=== PATIENT | female | born 1970 | race Caucasian/White ===

== ENCOUNTER → 2016-04-19 | Outpatient (CLI) | payer BC ==
[2016-04-19 11:42] LABS: CHLORIDE,CL 104 mmol/L (98-110); SODIUM,NA 140 mmol/L (136-146)
--- NOTE | 2016-04-19 16:15 | CR ---
EXAM DATE: 04/19/16 PATIENT'S AGE: 45 Patient: MARI LEGGETT Facility: [place], [place] Site . Site : 1970 Study: XRay Extremity Left wrist [id number]/8/2017 11:18:38 AM Ordering Physician: Felipa Colin Final Report: INDICATION: pain TECHNIQUE: Left wrist 2 views. COMPARISON: None. FINDINGS: Bones: Alignment is normal. No fractures or bone lesions. Joint spaces: Unremarkable. Soft tissues: Unremarkable. IMPRESSION: Unremarkable left wrist. Dictated by: Kirk Mcintosh MD @ 04/19/2016 12:01:57 (Electronic Signature) MReport Signed by Proxy and Original Signed Document filed in the Medical Record. MTDD
== END ==
LOC: MW.CHIM 10:52
PROVIDERS: ATTEND Internal Medicine
DX: M19.032 Primary osteoarthritis, left wrist (principal)
CPT/HCPCS: 36415; 73100-26-LT; 73100-LT; 80048; 84550; 85025; 85652; 86140

== ENCOUNTER 2016-06-02 16:05 | Emergency (ER) | payer BC ==
[2016-06-02] MEDS ORDERED: Sodium Chloride 0.9% 1,000 ML IV ONE (16:32)
[2016-06-02] MEDS ORDERED: Ondansetron 4 MG/2 ML SDV IVPUSH ONE (16:32)
[2016-06-02] MEDS ORDERED: Metoclopramide 10 MG/2 ML SDV IVPUSH ONE (16:32)
[2016-06-02] MEDS ORDERED: Alum Hydrox/Mag Hydrox/Simeth 15 ML, Metoclopramide 5 MG, Lidocaine 2% 5 ML PO ONE ×3 (16:32)
[2016-06-02 18:42] LABS: CHLORIDE,CL 108 mmol/L (98-110); SODIUM,NA 141 mmol/L (136-146)
[2016-06-02] MEDS ORDERED: Iopamidol 755 Mg/ML 100 ML Bottle IVPUSH STA (18:44)
--- NOTE | 2016-06-02 20:41 | EDM.PDOC ---
ED HPI GI/ABDOMINAL - General Chief Complaint: Abdominal Pain Stated Complaint: GALLBLADDER ISSUES Time Seen by Provider: 06/02/16 20:36 Source of Information: Reports: Patient History Limitations: Reports: No limitations - History of Present Illness INITIAL COMMENTS - FREE TEXT/NARRATIVE: History of present illness: [45-year-old female comes in complaining of upper epigastric pain. Indicates she feels bloated and stabbing indicates that this did happen several hours after eating, and denies anybody else who had same food had issues with the nausea and pain to] Review of systems: As per history of present illness and below otherwise all systems reviewed and negative. Past medical history: As per history of present illness and as reviewed below otherwise noncontributory. Surgical history: As per history of present illness and as reviewed below otherwise noncontributory. Social history: No reported history of drug or alcohol abuse. Family history: As per history of present illness and as reviewed below otherwise noncontributory. Physical exam: HEENT: Atraumatic, normocephalic, pupils reactive, negative for conjunctival pallor or scleral icterus, mucous membranes moist, throat clear, neck supple, nontender, trachea midline. Lungs: Clear to auscultation, breath sounds equal bilaterally, chest nontender. Heart: S1S2, regular, negative for clicks, rubs, or JVD. Abdomen: Soft, moderate amount of distention noted, diffuse abdominal tenderness most specifically noted right at the diaphragmatic border Negative for masses or hepatosplenomegaly. Negative for costovertebral tenderness. Pelvis: Stable nontender. Genitourinary: Deferred. Rectal: Deferred. Extremities: Atraumatic, negative for cords or calf pain. Neurovascular unremarkable. Neuro: Awake, alert, oriented. Cranial nerves II through XII unremarkable. Cerebellum unremarkable. Motor and sensory unremarkable throughout. Exam nonfocal. Patient given GI cocktail and indicated significant amount of relief from pain Slight bump in white blood cells noted, lactic acid negative Diagnostics: [EC, CMP, troponin, lactic acid] Therapeutics: [] Impression: [GERD] Plan: [Antacid] Definitive disposition and diagnosis as appropriate pending reevaluation and review of above. 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 below) Other OB/BYN History: 2 Ceasearen Section - Past Surgical History HEENT Surgical History: Reports: Tonsillectomy Other Neurological Surgeries/Procedures: spine cyst surgery Musculoskeletal Surgical History: Reports: Other (see below) Other Musculoskeletal Surgeries/Procedures:: wrist surgery Social & Family History - Family History Family Medical History: Noncontributory - Tobacco Use Smoking Status *Q: Current Every Day Smoker Years of Tobacco use: 30 Packs/Tins Daily: 1 - Recreational Drug Use Recreational Drug Use: No ED ROS GENERAL - Review of Systems Review Of Systems: See Below (The history of present illness) ED EXAM, GI/ABD - Physical Exam Exam: See Below (It) Course - Vital Signs Last Recorded V/S: Last Vital Signs Temp 36.4 C 06/02/16 19:38 Pulse 81 06/02/16 19:38 Resp 18 06/02/16 19:38 BP 115/81 06/02/16 19:38 Pulse Ox 96 06/02/16 19:38 - Orders/Labs/Meds Orders: Active Orders 24 hr Category Date Time Status Abdomen Pelvis w Cont [CT] Stat Exams 06/02/16 18:40 Taken Labs: Laboratory Tests 06/02/16 06/02/16 06/02/16 Range/Units 16:51 18:06 18:06 WBC 12.98 H (4.0-11.0) K/uL RBC 4.69 (4.30-5.90) M/uL Hgb 14.7 (12.0-16.0) g/dL Hct 43.1 (36.0-46.0) % MCV 91.9 (80.0-98.0) fL MCH 31.3 (27.0-32.0) pg MCHC 34.1 (31.0-37.0) g/dL RDW Std Deviation 43.3 (28.0-62.0) fl RDW Coeff of Aysha 13 (11.0-15.0) % Plt Count 260 (150-400) K/uL MPV 9.40 (7.40-12.00) fL Neut % (Auto) 69.5 (48.0-80.0) % Lymph % (Auto) 24.9 (16.0-40.0) % [place] % (Auto) 4.4 (0.0-15.0) % Eos % (Auto) 1.0 (0.0-7.0) % Baso % (Auto) 0.2 (0.0-1.5) % Neut # (Auto) 9.0 H (1.4-5.7) K/uL Lymph # (Auto) 3.2 H (0.6-2.4) K/uL [place] # (Auto) 0.6 (0.0-0.8) K/uL Eos # (Auto) 0.1 (0.0-0.7) K/uL Baso # (Auto) 0.0 (0.0-0.1) K/uL Nucleated RBC % 0.0 /100WBC Nucleated RBCs # 0 K/uL Lactate (0.20-2.00) mmol/L Sodium 141 (136-146) mmol/L Potassium 3.9 (3.5-5.1) mmol/L Chloride 108 (98-110) mmol/L Carbon Dioxide 24 (21-31) mmol/L BUN 11 (6.0-23.0) mg/dL Creatinine 0.7 (0.6-1.5) mg/dL Est Cr Clr Drug Dosing 82.19 mL/min Estimated GFR (MDRD) > 60.0 ml/min Glucose 126 H (60-110) mg/dL Calcium 8.9 (8.8-10.8) mg/dL Total Bilirubin 0.4 (0.1-1.5) mg/dL Direct Bilirubin 0.1 (0.0-0.5) mg/dL AST 13 (5-40) IU/L ALT 19 (8-54) IU/L Alkaline Phosphatase 77 (40-150) Troponin I (0.0-0.29) NG/ML Total Protein 6.7 (6.0-8.0) g/dL Albumin 4.1 (3.5-5.0) g/dL Globulin 2.6 (2.0-3.5) g/dL Albumin/Globulin Ratio 1.6 (1.3-2.8) Amylase 25 (10-90) U/L Lipase 16 (7-80) U/L Urine Color YELLOW Urine Appearance CLEAR Urine pH 6.0 (5.0-8.0) Ur Specific [place] <= 1.005 (1.001-1.035) Urine Protein NEGATIVE (NEGATIVE) mg/dL Urine Glucose (UA) NEGATIVE (NEGATIVE) mg/dL Urine Ketones NEGATIVE (NEGATIVE) mg/dL Urine Occult Blood SMALL H (NEGATIVE) Urine Nitrite NEGATIVE (NEGATIVE) Urine Bilirubin NEGATIVE (NEGATIVE) Urine Urobilinogen 0.2 (<2.0) EU/dL Ur Leukocyte Esterase NEGATIVE (NEGATIVE) Urine RBC 0-1 (0-2/HPF) Urine WBC 0-1 (0-5/HPF) Ur Epithelial Cells RARE (NONE-FEW) Amorphous Sediment LIGHT (NEGATIVE) Urine Bacteria NOT SEEN (NEGATIVE) Urine Mucus NOT SEEN (NONE-MOD) 06/02/16 06/02/16 Range/Units 18:58 18:58 WBC (4.0-11.0) K/uL RBC (4.30-5.90) M/uL Hgb (12.0-16.0) g/dL Hct (36.0-46.0) % MCV (80.0-98.0) fL MCH (27.0-32.0) pg MCHC (31.0-37.0) g/dL RDW Std Deviation (28.0-62.0) fl RDW Coeff of Aysha (11.0-15.0) % Plt Count (150-400) K/uL MPV (7.40-12.00) fL Neut % (Auto) (48.0-80.0) % Lymph % (Auto) (16.0-40.0) % [place] % (Auto) (0.0-15.0) % Eos % (Auto) (0.0-7.0) % Baso % (Auto) (0.0-1.5) % Neut # (Auto) (1.4-5.7) K/uL Lymph # (Auto) (0.6-2.4) K/uL [place] # (Auto) (0.0-0.8) K/uL Eos # (Auto) (0.0-0.7) K/uL Baso # (Auto) (0.0-0.1) K/uL Nucleated RBC % /100WBC Nucleated RBCs # K/uL Lactate 1.1 (0.20-2.00) mmol/L Sodium (136-146) mmol/L Potassium (3.5-5.1) mmol/L Chloride (98-110) mmol/L Carbon Dioxide (21-31) mmol/L BUN (6.0-23.0) mg/dL Creatinine (0.6-1.5) mg/dL Est Cr Clr Drug Dosing mL/min Estimated GFR (MDRD) ml/min Glucose (60-110) mg/dL Calcium (8.8-10.8) mg/dL Total Bilirubin (0.1-1.5) mg/dL Direct Bilirubin (0.0-0.5) mg/dL AST (5-40) IU/L ALT (8-54) IU/L Alkaline Phosphatase (40-150) Troponin I < 0.10 (0.0-0.29) NG/ML Total Protein (6.0-8.0) g/dL Albumin (3.5-5.0) g/dL Globulin (2.0-3.5) g/dL Albumin/Globulin Ratio (1.3-2.8) Amylase (10-90) U/L Lipase (7-80) U/L Urine Color Urine Appearance Urine pH (5.0-8.0) Ur Specific [place] (1.001-1.035) Urine Protein (NEGATIVE) mg/dL Urine Glucose (UA) (NEGATIVE) mg/dL Urine Ketones (NEGATIVE) mg/dL Urine Occult Blood (NEGATIVE) Urine Nitrite (NEGATIVE) Urine Bilirubin (NEGATIVE) Urine Urobilinogen (<2.0) EU/dL Ur Leukocyte Esterase (NEGATIVE) Urine RBC (0-2/HPF) Urine WBC (0-5/HPF) Ur Epithelial Cells (NONE-FEW) Amorphous Sediment (NEGATIVE) Urine Bacteria (NEGATIVE) Urine Mucus (NONE-MOD) Meds: Medications Discontinued Medications Generic Name Dose Route Start Last Admin Trade Name Freq PRN Reason Stop Dose Admin Al Hydroxide/Mg Hydroxide 15 0 ml 06/02/16 16:32 06/02/16 17:04 ml/ Metoclopramide HCl 5 mg/ PO 06/02/16 16:33 1 each Lidocaine HCl 5 ml ONETIME ONE Administration Sodium Chloride 1,000 mls @ 999 mls/hr 06/02/16 16:32 06/02/16 16:57 Normal Saline IV 06/02/16 17:32 999 mls/hr STAT ONE Administration Iopamidol 100 ml 06/02/16 18:44 Isovue-370 (76%) IVPUSH 06/02/16 18:45 ONETIME STA Metoclopramide HCl 5 mg 06/02/16 16:32 06/02/16 17:07 Reglan IVPUSH 06/02/16 16:33 5 mg ONETIME ONE Administration Ondansetron HCl 8 mg 06/02/16 16:32 06/02/16 17:01 Zofran IVPUSH 06/02/16 16:33 8 mg ONETIME ONE Administration Departure - Departure Time of Disposition: 20:39 Disposition: Home, Self-Care 01 Condition: good Clinical Impression: Gastritis, GERD (gastroesophageal reflux disease) Instructions: Abdominal Pain, Adult, [id number] Forms: ED Department Discharge Additional Instructions: The following information is given to patients seen in the emergency department who are being discharged to home. This information is to outline your options for follow-up care. We provide all patients seen in our emergency department with a follow-up referral. The need for follow-up, as well as the timing and circumstances, are variable depending upon the specifics of your emergency department visit. If you don't have a primary care physician on staff, we will provide you with a referral. We always advise you to contact your personal physician following an emergency department visit to inform them of the circumstance of the visit and for follow-up with them and/or the need for any referrals to a consulting specialist. The emergency department will also refer you to a specialist when appropriate. This referral assures that you have the opportunity for follow-up care with a specialist. All of these measure are taken in an effort to provide you with optimal care, which includes your follow-up. Under all circumstances we always encourage you to contact your private physician who remains a resource for coordinating your care. When calling for follow-up care, please make the office aware that this follow-up is from your recent emergency room visit. If for any reason you are refused follow-up, please contact the [facility] Emergency Department at and asked to speak to the emergency department charge nurse. Take medication as directed Follow up with PCP 1-2 days Return ED as needed as - My Orders Last 24 Hours: My Active Orders 06/02/16 18:40 Abdomen Pelvis w Cont [CT] Stat - Assessment/Plan Last 24 Hours: My Active Orders 06/02/16 18:40 Abdomen Pelvis w Cont [CT] Stat
[2016-06-02 21:09] VITALS: BP 120/71
--- NOTE | 2016-06-05 09:39 | CT ---
EXAM DATE: 06/02/16 PATIENT'S AGE: 45 Patient: MARI LEGGETT Facility: [place], [place] Site . Site : 1970 Study: CT Abdomen/Pelvis [id number]/21/2017 7:37:31 PM Ordering Physician: Doctor Aguilar Final Report: INDICATION: Epigastric pain, nausea and vomiting TECHNIQUE: CT abdomen and pelvis acquired with IV contrast. COMPARISON: No FINDINGS: Lower chest: Unremarkable. Liver: Unremarkable. Spleen: Unremarkable. Pancreas: Unremarkable. Gallbladder and bile ducts: Unremarkable. Kidneys: Unremarkable. Adrenal glands: Unremarkable. GI tract: The colon is located predominantly in the left side of the abdomen the cecum in the left mid abdomen, findings consistent with rotation abnormality. The cecum and the appendix are located in the left midabdomen. 2 the appendix is normal appearance. As best demonstrated on sagittal image 103, series 4. Vascular structures: Unremarkable. Lymph nodes: Unremarkable. Miscellaneous: Fat containing umbilical hernia. No free air or significant free fluid. Pelvic Organs: Bilateral fallopian tube plugs present. Bones: Unremarkable for age. IMPRESSION: No acute findings in the abdomen or pelvis to explain the patient`s symptomatology. The colon is located in the left kirill-abdomen with the cecum in the left mid abdomen. The appendix is normal. Dictated by Keith Baum MD @ 06/02/2016 8:07:41 PM Dictated by: Keith Baum MD @ 06/02/2016 20:07:54 (Electronic Signature) Report Signed by Proxy and Original Signed Document filed in the Medical Record. [facility]
== END 2016-06-02 20:55 | disposition home or self-care (01) ==
LOC: MW.ED 16:05
DX: K29.70 Gastritis, unspecified, without bleeding (principal); K21.9 Gastro-esophageal reflux disease without esophagitis
CPT/HCPCS: 36415; 74177; 80053; 81001; 82150; 82248; 83605; 83690; 84484; 85025; 96361; 96374; 96375; 99284; A9270; J2405; J2765; J7040; Q9967

== ENCOUNTER 2017-01-25 07:57 | Day surgery (SDC) | payer BC ==
[~2017-01-25 07:57] MED LIST: Bupivacaine 0.5% 30 ML SDV ONE; Lidocaine 1% 20 ML MDV ONE
--- NOTE | 2017-01-25 08:42 | PCM.PREANE ---
Preanesthetic Assessment - Anesthesia/Transfusion/Family Hx Anesthesia History: Prior Anesthesia Without Reaction Family History of Anesthesia Reaction: No Transfusion History: No Prior Transfusion(s) Intubation History: Unknown - Review of Systems General: No Symptoms Pulmonary: No Symptoms Cardiovascular: No Symptoms Gastrointestinal: No Symptoms Neurological: No Symptoms Other: Reports: None - Physical Assessment O2 Sat by Pulse Oximetry: 94 Respiratory Rate: 16 Vital Signs: Last Vital Signs Temp 36.8 C 01/25/17 08:30 Pulse 76 01/25/17 08:30 Resp 16 01/25/17 08:30 BP 104/63 01/25/17 08:30 Pulse Ox 94 L 01/25/17 08:30 Height: 1.6 m Weight: 92.986 kg ASA Class: 2 Mental Status: Alert & Oriented x3 Airway Class: Mallampati = 2 Dentition: Reports: Normal Dentition, [place](s) (x1 upper front) Thyro-Mental Finger Breadths: 3 Mouth Opening Finger Breadths: 4 ROM/Head Extension: Full Lungs: Clear to Auscultation, Normal Respiratory Effort Cardiovascular: Regular Rate, Regular Rhythm - Lab Values: Laboratory Last Values Urine HCG, Qual NEGATIVE (NEGATIVE) 01/25/17 08:01 - Allergies Allergies/Adverse Reactions: Allergies Allergy/AdvReac Type Severity Reaction Status Date / Time No Known Allergies Allergy Verified 01/23/17 13:10 - Blood Blood Available: No - Anesthesia Plan Pre-Op Medication Ordered: None - Acknowledgements Anesthesia Type Planned: General Anesthesia Pt an Appropriate Candidate for the Planned Anesthesia: Yes Alternatives and Risks of Anesthesia Discussed w Pt/Guardian: Yes Pt/Guardian Understands and Agrees with Anesthesia Plan: Yes PreAnesthesia Questionnaire - Past Health History Medical/Surgical History: Denies Medical/Surgical History Cardiovascular History: Reports: High Cholesterol Gastrointestinal History: Reports: 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/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 History: 2 Ceasearen Section Musculoskeletal History: Reports: Gout Other Musculoskeletal History: gout in left wrist Neurological History: Reports: Concussion, Other (See Below) Other Neuro History: hx of motion sickness Endocrine/Metabolic History: Reports: Diabetes, Type II (diagnosed 3 weeks ago) , Obesity/BMI 30+, Other (See Below) (h/o hypothyroidism) - Past Surgical History HEENT Surgical History: Reports: Tonsillectomy Female Surgical History: Reports: Section, Other (See Below) Other Female Surgeries/Procedures: excision of bartholin gland cyst Musculoskeletal Surgical History: Reports: Other (See Below) Other Musculoskeletal Surgeries/Procedures:: excision of cyst right hand - SUBSTANCE USE Smoking Status *Q: Current Every Day Smoker (1 ppd) Tobacco Use Within Last Twelve Months: Cigarettes Recreational Drug Use History: No - HOME MEDS Home Medications: Home Meds Lisinopril [Prinivil] 2.5 mg PO DAILY 01/23/17 [History] Simvastatin [Zocor] 20 mg PO BEDTIME 01/23/17 [History] metFORMIN HCl [Metformin HCl] 1,000 mg PO BID 01/23/17 [History] - CURRENT (IN HOUSE) MEDS Current Meds: Current Medications Cefazolin Sodium/Dextrose 2 gm (/ Premix) 50 mls @ 100 mls/hr IV ONETIME ONE Stop: 01/25/17 09:29 Lactated Ringer's (Ringers, Lactated) 1,000 mls @ 125 mls/hr IV ASDIRECTED OSMAN Last Admin: 01/25/17 08:30 Dose: 125 mls/hr Discontinued Medications Bupivacaine HCl (Marcaine 0.5%) Confirm Administered Dose 30 ml .ROUTE .STK-MED ONE Stop: 01/25/17 07:21 Lidocaine HCl (Xylocaine 1%) Confirm Administered Dose 20 ml .ROUTE .STK-MED ONE Stop: 01/25/17 07:21
[2017-01-25] MEDS ORDERED: Midazolam 1 MG/ML 2 ML SDV ONE (08:43)
[2017-01-25] MEDS ORDERED: fentaNYL 100 MCG/2 ML SDV ONE (08:43)
[2017-01-25] MEDS ORDERED: Propofol 200 MG/20 ML SDV ONE (08:43)
[2017-01-25] MEDS ORDERED: Lidocaine 2% 5 ML SDV ONE (08:43)
[2017-01-25] MEDS ORDERED: ceFAZolin 1 GM Vial ONE (08:44)
[2017-01-25] MEDS ORDERED: Sodium Chloride 0.9% 20 ML ONE (08:44)
[2017-01-25] MEDS ORDERED: ceFAZolin 2 GM in Premix Bag 1 BAG IV ONE (09:00)
[2017-01-25] MEDS ORDERED: Lactated Ringers 1,000 ML IV SCH (09:00)
--- NOTE | 2017-01-25 09:59 | PN ---
Preoperative Progress Note. IDENTIFICATION: The patient is a 46-year-old female. PREOPERATIVE DIAGNOSIS: Mass on left foot. OPERATIVE PROCEDURE: Excision of mass, left foot. ANESTHESIA: General. CONSENT: Signed and in the chart by the patient and history and physical was completed by Dr. Leo with no contraindications to surgery. PAST MEDICAL HISTORY: The patient has the following active problems: Acid reflux, acute bronchitis, amenorrhea, arthritis of the left wrist, the patient is a smoker, history of gout, hyperuricemia, hypothyroidism, menopause, obesity, acute sinusitis. ALLERGIES: The patient has no known allergies. MEDICATIONS: Has only recently started the following medications: The patient is now taking metformin 1000 mg one tab by mouth twice a day. The patient is taking simvastatin 20 mg one tab daily and lisinopril 2.5 mg one tablet daily. LABORATORY DATA: White blood cell 9.23, red blood cell 4.49, hemoglobin 14.2, hematocrit 40.9, platelets 239. Sodium 138, potassium 3.8, chloride 107, CO2 19. Random glucose on January 03 was 322; however, that has now been controlled and this morning the patient reports glucose of 125, BUN 9, creatinine 0.8. Hemoglobin A1c 7.9. EKG; normal sinus rhythm with a probable left atrial enlargement. The patient presents for excision of mass left foot today. No contraindications to surgery have been noted. No guarantees given or implied. YOAV SHARP /[id number] MTDD
[2017-01-25] MEDS ORDERED: fentaNYL 100 MCG/2 ML SDV IVPUSH PRN (10:08)
[2017-01-25] MEDS ORDERED: HYDROmorphone 2 MG/ML Syringe ONE (10:28)
[2017-01-25] MEDS ORDERED: Acetaminophen/HYDROcodone 325-5 MG Tab PO PRN (11:23)
--- NOTE | 2017-01-25 11:28 | PCM.OPNOTE ---
- General Post-Op/Procedure Note Date of Surgery/Procedure: 01/25/17 Operative Procedure(s): excision of mass left foot Findings: consistent with diagnosis Pre Op Diagnosis: mass left foot Post-Op Diagnosis: mass left foot Anesthesia Technique: General LMA Primary Surgeon: Markell Rodriguez Anesthesia Provider: Suleman Jon Pathology: mass left foot consisting of multiple thickened portions of fascia EBL in mLs: 5 Complications: none Condition: Good Free Text/Narrative:: materials: 4-0 vicryl and 4-0 prolene injectables: 10 ml of 0.5% marcaine plain
--- NOTE | 2017-01-25 11:58 | PCM48HPAN ---
Post Anesthesia Note - EVALUATION WITHIN 48HRS OF ANESTHETIC Vital Signs in Normal Range: Yes Patient Participated in Evaluation: Yes Respiratory Function Stable: Yes Airway Patent: Yes Cardiovascular Function Stable: Yes Hydration Status Stable: Yes Pain Control Satisfactory: Yes Nausea and Vomiting Control Satisfactory: Yes Mental Status Recovered: Yes
[2017-01-25 13:42] VITALS: BP 110/61
--- NOTE | 2017-01-26 01:08 | OR ---
SURGEON: Markell Rodriguez DPM DATE OF PROCEDURE: 01/25/2017 PROCEDURE: Excision of mass, left foot. PREOPERATIVE DIAGNOSIS: Mass, left foot. POSTOPERATIVE DIAGNOSIS: Mass, left foot. ANESTHESIA: General. PATHOLOGY: Mass, left foot, consisting of multiple thickened portions of fascia. ESTIMATED BLOOD LOSS: 5 mL. COMPLICATIONS: None. MATERIALS: 4-0 Vicryl and 4-0 Prolene. INJECTABLES: 10 mL of 0.5% Marcaine plain. ANESTHESIA: General. HEMOSTASIS: Above ankle pneumatic tourniquet inflated to a pressure of 250 mmHg after an Esmarch bandage exsanguination of the left foot. JUSTIFICATION FOR THE PROCEDURE: The patient is an established patient of mine, who developed a mass on the plantar mid section of the left foot. She underwent an ultrasound at my direction, which resulted in an impression by the radiologist which I concur with of a mass most consistent with that of a lipoma in appearance on the ultrasound; however, this was not certain. In any event, the mass has been gradually increasing in size and quite painful to the patient, and the patient and I discussed treatment options conservatively; due to the likelihood that this is a lipoma which has been increasing, it will be difficult to achieve any type of adequate resolution of the symptoms for the patient, the patient elected for surgical excision of the mass. All of the patient's questions were answered. No guarantees have been expressed or implied. Consent form was signed by the patient with a witness present and placed in the patient's chart. DESCRIPTION OF PROCEDURE: Excision of mass, left foot. The patient was brought to the operating room and placed on the operating table in a supine position. A tourniquet was placed around the patient's distal left leg just above the ankle and an aseptic scrub and drape was performed about the patient's left lower extremity after anesthesia was administered. Esmarch bandage exsanguination was then performed after the incision site was planned with a marking pen and the pneumatic ankle tourniquet was inflated to a pressure of 250 mmHg. Utilizing the incision line planned before exsanguination, a linear incision was made directly over the central portion of the palpable mass. The incision was approximately 3 cm in length and was on the plantar aspect of the left foot roughly in the middle of the foot, although slightly to the medial side. The incision was then deepened to the level of subcutaneous tissue and the plantar fascia was visualized as well as the palpable areas within it, which represent the location of the mass. This was not a single well-defined mass, rather it was a thickening that had been caused within the plantar fascia by the mass material and at least two locations extremely close to each other. Both areas were resected with the plantar fascia restored to its regular thickness in those areas with the excision of the material which was then placed in a formalin sterile specimen container and sent to pathology for gross and histologic examination. The area was flushed with copious amounts of normal sterile saline, re-inspected, and a small amount of additional tissue was removed, and the entire plantar fascia was reapproximated using 4-0 Vicryl suture, and then the subcutaneous tissue was reapproximated using 4-0 Vicryl suture as well. The superficial skin was reapproximated using 4-0 Prolene suture. The area was covered with Betadine- soaked Xeroform gauze after the entire syringe of 10 mL of 0.5% Marcaine plain was injected about the surgical site and an additional dressings consisted of fluff gauze, Kerlix roll, and Rashel bandage. The tourniquet was promptly deflated with a tourniquet time of 1 hour, and the patient had an immediate hyperemic response to all digits of the left foot. The patient tolerated the procedure and the anesthesia well with no complications noted. She was transported to the recovery room, and after a brief stay in recovery room, to her preoperative room and was provided with crutches and the written and oral instructions for postoperative care. The patient is to follow up in my office no later than Sunday this coming week and has been provided with my cell phone number should she have any concerns at any time. The patient is to maintain strict nonweightbearing to the left lower extremity and utilize the crutches as needed for ambulation. The patient has been provided with a shower bag to keep her dressings clean and dry and has been provided with a prescription for analgesic care as necessary. YOAV / LILA /[id number]
--- NOTE | 2017-03-01 11:51 | OR ---
SURGEON: Mrakell Rodriguez DPM DATE OF PROCEDURE: 01/25/2017 ADDENDUM For the excised portions of the left foot mass material from the plantar foot, the measurements of the excised tissue measured in total 18 x 17 x 3 mm. YOAV / LILA /[id number]
== END 2017-01-25 12:35 | disposition home or self-care (01) ==
LOC: MW.SDS 07:57
PROVIDERS: ATTEND Podiatrist Foot & Ankle Surgery
DX: M72.2 Plantar fascial fibromatosis (principal); F17.210 Nicotine dependence, cigarettes, uncomplicated; K21.9 Gastro-esophageal reflux disease without esophagitis; M19.032 Primary osteoarthritis, left wrist; E11.65 Type 2 diabetes mellitus with hyperglycemia; E78.5 Hyperlipidemia, unspecified; M10.9 Gout, unspecified; E03.9 Hypothyroidism, unspecified; E66.9 Obesity, unspecified; J01.90 Acute sinusitis, unspecified; Z79.84 Long term (current) use of oral hypoglycemic drugs; Z79.899 Other long term (current) drug therapy; Z68.36 Body mass index [BMI] 36.0-36.9, adult; Z90.89 Acquired absence of other organs; Z98.890 Other specified postprocedural states
CPT/HCPCS: 11426; 81025; 88305; J0690; J1170; J2250; J3010; J7120; 00400; J2704

== ENCOUNTER 2017-08-19 20:58 | Emergency (ER) | payer BC ==
[2017-08-19] MEDS ORDERED: diphenhydrAMINE 50 MG/ML SDV IVPUSH ONE (21:12)
[2017-08-19] MEDS ORDERED: Ketorolac 30 MG/ML SDV IVPUSH ONE (21:12)
[2017-08-19] MEDS ORDERED: Ondansetron 4 MG/2 ML SDV IVPUSH ONE (21:12)
[2017-08-19] MEDS ORDERED: Sodium Chloride 0.9% 1,000 ML IV ONE (21:12)
--- NOTE | 2017-08-19 21:12 | EDM.PDOC ---
<Barry Calderon - Last Filed: 08/19/17 23:08> ED HPI GENERAL MEDICAL PROBLEM - General Chief Complaint: Headache Stated Complaint: HEAD PAIN/HEADACHES Time Seen by Provider: 08/19/17 21:06 - History of Present Illness INITIAL COMMENTS - FREE TEXT/NARRATIVE: Patient's emergency room course has been unremarkable she was discharged in accordance with above. - Related Data Allergies Allergy/AdvReac Type Severity Reaction Status Date / Time No Known Allergies Allergy Verified 01/23/17 13:10 Home Meds: Home Meds Lisinopril [Prinivil] 2.5 mg PO DAILY 01/23/17 [History] Simvastatin [Zocor] 20 mg PO BEDTIME 01/23/17 [History] metFORMIN HCl [Metformin HCl] 1,000 mg PO BID 01/23/17 [History] Course - Vital Signs Last Recorded V/S: Last Vital Signs Temp 97 F 08/19/17 20:58 Pulse 76 08/19/17 23:25 Resp 18 08/19/17 23:25 BP 125/67 08/19/17 23:25 Pulse Ox 96 08/19/17 23:25 - Orders/Labs/Meds Labs: Laboratory Tests 08/19/17 08/19/17 Range/Units 21:15 21:15 WBC 12.12 H (4.0-11.0) K/uL RBC 4.75 (4.30-5.90) M/uL Hgb 14.8 (12.0-16.0) g/dL Hct 42.4 (36.0-46.0) % MCV 89.3 (80.0-98.0) fL MCH 31.2 (27.0-32.0) pg MCHC 34.9 (31.0-37.0) g/dL RDW Std Deviation 41.5 (28.0-62.0) fl RDW Coeff of Aysha 13 (11.0-15.0) % Plt Count 251 (150-400) K/uL MPV 9.60 (7.40-12.00) fL Neut % (Auto) 66.7 (48.0-80.0) % Lymph % (Auto) 25.8 (16.0-40.0) % [place] % (Auto) 6.4 (0.0-15.0) % Eos % (Auto) 0.9 (0.0-7.0) % Baso % (Auto) 0.2 (0.0-1.5) % Neut # (Auto) 8.1 H (1.4-5.7) K/uL Lymph # (Auto) 3.1 H (0.6-2.4) K/uL [place] # (Auto) 0.8 (0.0-0.8) K/uL Eos # (Auto) 0.1 (0.0-0.7) K/uL Baso # (Auto) 0.0 (0.0-0.1) K/uL Nucleated RBC % 0.0 /100WBC Nucleated RBCs # 0 K/uL ESR 2 (0-19) mm/hr Sodium 138 (136-145) mmol/L Potassium 3.8 (3.5-5.1) mmol/L Chloride 102 (98-107) mmol/L Carbon Dioxide 26.0 (21.0-32.0) mmol/L BUN 8 (7.0-18.0) mg/dL Creatinine 1.0 (0.6-1.0) mg/dL Est Cr Clr Drug Dosing 56.91 mL/min Estimated GFR (MDRD) 59.2 ml/min Glucose 185 H (74-106) mg/dL Calcium 9.2 (8.5-10.1) mg/dL Total Bilirubin 0.2 (0.2-1.0) mg/dL AST 19 (15-37) IU/L ALT 43 (14-63) IU/L Alkaline Phosphatase 83 (46-116) U/L C-Reactive Protein 0.90 (0.00-0.90) mg/dL Total Protein 7.0 (6.4-8.2) g/dL Albumin 3.8 (3.4-5.0) g/dL Globulin 3.2 (2.0-3.5) g/dL Albumin/Globulin Ratio 1.2 L (1.3-2.8) Meds: Medications Discontinued Medications Generic Name Dose Route Start Last Admin Trade Name Freq PRN Reason Stop Dose Admin Diphenhydramine HCl 50 mg 08/19/17 21:12 08/19/17 21:47 Benadryl IVPUSH 08/19/17 21:13 50 mg ONETIME ONE Administration Sodium Chloride 1,000 mls @ 999 mls/hr 08/19/17 21:12 08/19/17 21:43 Normal Saline IV 08/19/17 22:12 999 mls/hr STAT ONE Administration Ketorolac Tromethamine 30 mg 08/19/17 21:12 08/19/17 21:44 Toradol IVPUSH 08/19/17 21:13 30 mg ONETIME ONE Administration Ondansetron HCl 4 mg 08/19/17 21:12 08/19/17 21:45 Zofran IVPUSH 08/19/17 21:13 4 mg ONETIME ONE Administration Departure - Departure Time of Disposition: 23:09 Disposition: Home, Self-Care 01 Condition: Good Clinical Impression: Cephalgia Qualifiers: Headache type: unspecified Headache chronicity pattern: acute headache Intractability: not intractable Qualified Code(s): R51 - Headache - Discharge Information Instructions: General Headache Without Cause Referrals: Gwendolyn Sierra MD [Primary Care Provider] - Forms: ED Department Discharge Additional Instructions: The following information is given to patients seen in the emergency department who are being discharged to home. This information is to outline your options for follow-up care. We provide all patients seen in our emergency department with a follow-up referral. The need for follow-up, as well as the timing and circumstances, are variable depending upon the specifics of your emergency department visit. If you don't have a primary care physician on staff, we will provide you with a referral. We always advise you to contact your personal physician following an emergency department visit to inform them of the circumstance of the visit and for follow-up with them and/or the need for any referrals to a consulting specialist. The emergency department will also refer you to a specialist when appropriate. This referral assures that you have the opportunity for followup care with a specialist. All of these measure are taken in an effort to provide you with optimal care, which includes your followup. Under all circumstances we always encourage you to contact your private physician who remains a resource for coordinating your care. When calling for followup care, please make the office aware that this follow-up is from your recent emergency room visit. If for any reason you are refused follow-up, please contact the [facility] emergency department at and asked to speak to the emergency department charge nurse. Follow-up primary medical doctor as needed as discussed Motrin/Tylenol as directed return as needed as discussed <Brooklyn Wilkinson E - Last Filed: 08/22/17 11:09> ED HPI GENERAL MEDICAL PROBLEM - General Source of Information: Reports: Patient History Limitations: Reports: No Limitations - History of Present Illness INITIAL COMMENTS - FREE TEXT/NARRATIVE: HISTORY AND PHYSICAL: History of present illness: Patient is a 46-year-old female who presents to the emergency room today with complaints of sharp shooting pain to her frontal scalp. She states that this started several hours ago and it is exacerbated when she takes in deep breaths. Every time she inhales deeply she feels sharp shooting pains going into her head. She states "this is not a migraine of had migraines before". She denies any fever, chills, chest pain, shortness of breath or cough. Denies any abdominal pain, nausea, vomiting, diarrhea or constipation. She has no change in vision, light sensitivity or noise sensitivity. Review of systems: As per history of present illness and below otherwise all systems reviewed and negative. Past medical history: As per history of present illness and as reviewed below otherwise noncontributory. Surgical history: As per history of present illness and as reviewed below otherwise noncontributory. Social history: No reported history of drug or alcohol abuse. Family history: As per history of present illness and as reviewed below otherwise noncontributory. Physical exam: General: Well-developed and well-nourished 46-year-old female. Alert and oriented. Nontoxic appearing and in no acute distress. HEENT: Atraumatic, normocephalic, pupils equal and reactive bilaterally, negative for conjunctival pallor or scleral icterus, mucous membranes moist, throat clear, neck supple, nontender, trachea midline. No drooling or trismus noted. No meningeal signs Lungs: Clear to auscultation, breath sounds equal bilaterally, chest nontender. Heart: S1S2, regular rate and rhythm without overt murmur Abdomen: Soft, nondistended, nontender. Negative for masses or hepatosplenomegaly. Negative for costovertebral tenderness. Pelvis: Stable nontender. Genitourinary: Deferred. Rectal: Deferred. Skin: Intact, warm, dry. No lesions or rashes noted. Extremities: Atraumatic, negative for cords or calf pain. Neurovascular unremarkable. Neuro: Awake, alert, oriented. Cranial nerves II through XII unremarkable. Cerebellum unremarkable. Motor and sensory unremarkable throughout. Exam nonfocal. Notes: We discussed doing a head CT and lab work, which they would like to have done. She is agreeable to receiving some IV fluids and medications, is at the bedside and able to drive. Vital signs are stable. Diagnostics: Head CT, chest x-ray, CBC, CMP, ESR, CRP Therapeutics: IV fluids, Toradol, Benadryl, Zofran Impression: Cephalgia Plan: 1. No driving for the remainder of the evening. 2. Tylenol and/or Ibuprofen as needed for pain management. 3. Follow up with your primary care provider in the next 1-2 days. Return to the ED as needed and as discussed. Definitive disposition and diagnosis as appropriate pending reevaluation and review of above. Onset: Today Location: Reports: Head, Chest Treatments INDUSTRIAL EDITOR: Reports: Other (see below) (Excedrine Migraine) head Pain Score (Numeric/FACES): 9 Past Medical History - Past Health History Medical/Surgical History: Denies Medical/Surgical History Cardiovascular History: Reports: High Cholesterol Gastrointestinal History: Reports: GERD PREVENTION RN History: Reports: Other PREVENTION RN History: 2 Ceasearen Section Musculoskeletal History: Reports: Gout Other Musculoskeletal History: gout in left wrist Neurological History: Reports: Concussion, Other (See Below) Other Neuro History: hx of motion sickness Endocrine/Metabolic History: Reports: Diabetes, Type II, Obesity/BMI 30+, Other (See Below) - Past Surgical History HEENT Surgical History: Reports: Tonsillectomy Female Surgical History: Reports: Section, Other (See Below) Other Female Surgeries/Procedures: excision of bartholin gland cyst Other Neurological Surgeries/Procedures: spine cyst surgery Musculoskeletal Surgical History: Reports: Other (See Below) Other Musculoskeletal Surgeries/Procedures:: excision of cyst right hand Social & Family History - Family History Family Medical History: Noncontributory ED ROS GENERAL - Review of Systems Review Of Systems: ROS reveals no pertinent complaints other than HPI. - Physical Exam Exam: See Below (See dictation) Course - Vital Signs Last Recorded V/S: Last Vital Signs Temp 97 F 08/19/17 20:58 Pulse 76 08/19/17 23:25 Resp 18 08/19/17 23:25 BP 125/67 08/19/17 23:25 Pulse Ox 96 08/19/17 23:25 - Orders/Labs/Meds Labs: Laboratory Tests 08/19/17 08/19/17 Range/Units 21:15 21:15 WBC 12.12 H (4.0-11.0) K/uL RBC 4.75 (4.30-5.90) M/uL Hgb 14.8 (12.0-16.0) g/dL Hct 42.4 (36.0-46.0) % MCV 89.3 (80.0-98.0) fL MCH 31.2 (27.0-32.0) pg MCHC 34.9 (31.0-37.0) g/dL RDW Std Deviation 41.5 (28.0-62.0) fl RDW Coeff of Aysha 13 (11.0-15.0) % Plt Count 251 (150-400) K/uL MPV 9.60 (7.40-12.00) fL Neut % (Auto) 66.7 (48.0-80.0) % Lymph % (Auto) 25.8 (16.0-40.0) % [place] % (Auto) 6.4 (0.0-15.0) % Eos % (Auto) 0.9 (0.0-7.0) % Baso % (Auto) 0.2 (0.0-1.5) % Neut # (Auto) 8.1 H (1.4-5.7) K/uL Lymph # (Auto) 3.1 H (0.6-2.4) K/uL [place] # (Auto) 0.8 (0.0-0.8) K/uL Eos # (Auto) 0.1 (0.0-0.7) K/uL Baso # (Auto) 0.0 (0.0-0.1) K/uL Nucleated RBC % 0.0 /100WBC Nucleated RBCs # 0 K/uL ESR 2 (0-19) mm/hr Sodium 138 (136-145) mmol/L Potassium 3.8 (3.5-5.1) mmol/L Chloride 102 (98-107) mmol/L Carbon Dioxide 26.0 (21.0-32.0) mmol/L BUN 8 (7.0-18.0) mg/dL Creatinine 1.0 (0.6-1.0) mg/dL Est Cr Clr Drug Dosing 56.91 mL/min Estimated GFR (MDRD) 59.2 ml/min Glucose 185 H (74-106) mg/dL Calcium 9.2 (8.5-10.1) mg/dL Total Bilirubin 0.2 (0.2-1.0) mg/dL AST 19 (15-37) IU/L ALT 43 (14-63) IU/L Alkaline Phosphatase 83 (46-116) U/L C-Reactive Protein 0.90 (0.00-0.90) mg/dL Total Protein 7.0 (6.4-8.2) g/dL Albumin 3.8 (3.4-5.0) g/dL Globulin 3.2 (2.0-3.5) g/dL Albumin/Globulin Ratio 1.2 L (1.3-2.8) Meds: Medications Discontinued Medications Generic Name Dose Route Start Last Admin Trade Name Mj PRN Reason Stop Dose Admin Diphenhydramine HCl 50 mg 08/19/17 21:12 08/19/17 21:47 Benadryl IVPUSH 08/19/17 21:13 50 mg ONETIME ONE Administration Sodium Chloride 1,000 mls @ 999 mls/hr 08/19/17 21:12 08/19/17 21:43 Normal Saline IV 08/19/17 22:12 999 mls/hr STAT ONE Administration Ketorolac Tromethamine 30 mg 08/19/17 21:12 08/19/17 21:44 Toradol IVPUSH 08/19/17 21:13 30 mg ONETIME ONE Administration Ondansetron HCl 4 mg 08/19/17 21:12 08/19/17 21:45 Zofran IVPUSH 08/19/17 21:13 4 mg ONETIME ONE Administration
[2017-08-19 23:33] VITALS: BP 125/67
--- NOTE | 2017-08-21 14:49 | CR ---
EXAM DATE: 08/19/17 PATIENT'S AGE: 46 Patient: MARI WHELAN Facility: [place], [place] Site . Site : 1970 Study: XRay Chest [id number] 10:23:32 PM Ordering Physician: Doctor Aguilar Final Report: INDICATION: Pain and SOB. TECHNIQUE: PA and lateral. COMPARISON: None. FINDINGS: Lungs low in volume with crowded markings in the bases. No obvious infiltrate. No pleural effusion. Heart size and pulmonary vasculature within normal limits, allowing for the shallow inspiration. No significant bony abnormality. IMPRESSION: Negative chest, allowing for shallow inspiration. Dictated by Tin Luna MD @ Aug 19 2017 10:45PM (Electronic Signature) Report Signed by Proxy. NGHIA
--- NOTE | 2017-08-21 14:50 | CT ---
EXAM DATE: 08/19/17 PATIENT'S AGE: 46 Patient: MARI WHELAN Facility: [place], [place] Site . Site : 1970 Study: CT Head [id number] 10:19:55 PM Ordering Physician: Doctor Aguilar Final Report: INDICATION: Pain/headaches. TECHNIQUE: Scanning of the head was performed without IV contrast material. Coronal and sagittal reconstructions were obtained. COMPARISON: None. FINDINGS: No acute hemorrhage, parenchymal attenuation abnormality, or mass effect is demonstrated. Differentiation between the crow matter and white matter is preserved. The ventricles and other subarachnoid spaces are within normal limits. No calvarial abnormality is evident. The visualized paranasal and mastoid sinuses are clear. IMPRESSION: Negative noncontrast head CT. Please note that all CT scans at this facility use dose modulation, iterative reconstruction, and/or weight-based dosing when appropriate to reduce radiation dose to as low as reasonably achievable. Dictated by Tin Luna MD @ Aug 19 2017 10:45PM (Electronic Signature) Report Signed by Proxy. [facility]OSPITALSeth
== END 2017-08-19 23:25 | disposition home or self-care (01) ==
LOC: MW.ED 20:58
DX: R51 Headache (principal); E78.00 Pure hypercholesterolemia, unspecified; K21.9 Gastro-esophageal reflux disease without esophagitis; E11.9 Type 2 diabetes mellitus without complications; Z79.899 Other long term (current) drug therapy; Z79.84 Long term (current) use of oral hypoglycemic drugs
CPT/HCPCS: 70450; 71046; 80053; 85025; 85652; 86140; 96361; 96374; 96375; 99284; J1200; J1885; J2405; J7040

== ENCOUNTER 2019-03-07 09:54 | Day surgery (SDC) | payer BC ==
[~2019-03-07 09:54] MED LIST changes: +50% Dextrose in Water 50 ML Syringe IVPUSH PRN; +Albuterol 0.083% 2.5 MG/3 ML Neb Soln NEB PRN; +Atropine 0.1 MG/ML 10 ML Syringe IVPUSH PRN; -Bupivacaine 0.5% 30 ML SDV ONE; +EPINEPHrine 1:10,000 1 MG/10 ML Syringe IVPUSH PRN; +Lactated Ringers 1,000 ML IV SCH; -Lidocaine 1% 20 ML MDV ONE; +Naloxone 0.4 MG/ML Syringe IVPUSH PRN; +fentaNYL 100 MCG/2 ML SDV IVPUSH PRN
--- NOTE | 2019-03-07 10:49 | PCM.PREANE ---
Preanesthetic Assessment - Anesthesia/Transfusion/Family Hx Anesthesia History: Prior Anesthesia Without Reaction Family History of Anesthesia Reaction: No Transfusion History: No Prior Transfusion(s) Intubation History: Unknown - Review of Systems General: No Symptoms Pulmonary: No Symptoms Cardiovascular: No Symptoms Gastrointestinal: Abdominal Pain Neurological: No Symptoms Other: Reports: None - Physical Assessment Vital Signs: Last Vital Signs Temp 36.9 C 03/07/19 10:34 Pulse 78 03/07/19 10:34 Resp 16 03/07/19 10:34 BP 132/67 03/07/19 10:34 Pulse Ox 94 L 03/07/19 10:34 Height: 5 ft 3 in Weight: 88.451 kg ASA Class: 3 Mental Status: Alert & Oriented x3 Airway Class: Mallampati = 2 Dentition: Reports: [place](s) (x4 upper front) Thyro-Mental Finger Breadths: 2 Mouth Opening Finger Breadths: 3 ROM/Head Extension: Full Lungs: Clear to Auscultation, Normal Respiratory Effort Cardiovascular: Regular Rate, Regular Rhythm - Lab Values: Laboratory Last Values POC Glucose 245 mg/dL (60-110) H 03/07/19 10:20 - Allergies Allergies/Adverse Reactions: Allergies Allergy/AdvReac Type Severity Reaction Status Date / Time No Known Allergies Allergy Verified 03/07/19 10:33 - Blood Blood Available: No - Anesthesia Plan Pre-Op Medication Ordered: None - Acknowledgements Anesthesia Type Planned: MAC Pt an Appropriate Candidate for the Planned Anesthesia: Yes Alternatives and Risks of Anesthesia Discussed w Pt/Guardian: Yes Pt/Guardian Understands and Agrees with Anesthesia Plan: Yes PreAnesthesia Questionnaire - Past Health History Medical/Surgical History: Denies Medical/Surgical History HEENT History: Reports: Other (See Below) Other HEENT History: reading glasses Cardiovascular History: Reports: High Cholesterol Gastrointestinal History: Reports: Chronic Diarrhea, GERD [employer] History: Reports: Other OB/BYN History: 2 Ceasearen Section Musculoskeletal History: Reports: Back Pain, Chronic, Fracture, Gout Other Musculoskeletal History: hx of fx left wrisst Neurological History: Reports: Concussion, Other (See Below) Other Neuro History: hx of motion sickness Endocrine/Metabolic History: Reports: Diabetes, Type II (accucheck 245), Hypothyroidism, Obesity/BMI 30+ (BMI 34.5) Dermatologic History: Reports: Other (See Below) Other Dermatologic History: juat getting over a"rash" in her "privates" - Past Surgical History Head Surgeries/Procedures: Reports: None HEENT Surgical History: Reports: Tonsillectomy Female Surgical History: Reports: Section (x2), Other (See Below) Other Female Surgeries/Procedures: x2, Excision of Bartholin Gland Cyst Other Neurological Surgeries/Procedures: spine cyst surgery Musculoskeletal Surgical History: Reports: Other (See Below) Other Musculoskeletal Surgeries/Procedures:: excision of cyst right hand, exc. left foot nodules (3) - SUBSTANCE USE Smoking Status *Q: Current Every Day Smoker (1 02/13 ppd) Tobacco Use Within Last Twelve Months: Cigarettes Recreational Drug Use History: No - HOME MEDS Home Medications: Home Meds metFORMIN HCl [Metformin HCl] 1,000 mg PO BID 01/23/17 [History] - CURRENT (IN HOUSE) MEDS Current Meds: Current Medications Albuterol (Proventil Neb Soln) 2.5 mg NEB ONETIME PRN PRN Reason: Wheezing Atropine Sulfate (Atropine 0.1 Mg/Ml) 0.5 mg IVPUSH ASDIRECTED PRN PRN Reason: Hypo-perfusion Atropine Sulfate (Atropine 0.1 Mg/Ml) 1 mg IVPUSH ASDIRECTED PRN PRN Reason: Hypo-Perfusion Dextrose/Water (Dextrose 50% In Water) 50 ml IVPUSH ASDIRECTED PRN PRN Reason: Hypoglycemia Epinephrine HCl (Epinephrine 1:10,000) 1 mg IVPUSH ASDIRECTED PRN PRN Reason: ACLS Guidelines Fentanyl (Sublimaze) 50 mcg IVPUSH Q5M PRN PRN Reason: Pain Lactated Ringer's (Ringers, Lactated) 1,000 mls @ 125 mls/hr IV ASDIRECTED [facility] Last Admin: 03/07/19 10:33 Dose: 125 mls/hr Naloxone HCl (Narcan) 0.1 mg IVPUSH ASDIRECTED PRN PRN Reason: Respiratory Depression
[2019-03-07] MEDS ORDERED: Propofol 200 MG/20 ML SDV ONE ×2 (13:08→13:46)
[2019-03-07] MEDS ORDERED: Lidocaine 2% 5 ML SDV ONE (13:09)
[2019-03-07] MEDS ORDERED: Ketamine 500 mg/10 ML MDV ONE (13:10)
--- NOTE | 2019-03-07 14:00 | PCM.OPNOTE ---
- General Post-Op/Procedure Note Date of Surgery/Procedure: 03/07/19 Operative Procedure(s): egd w bx. colonoscopy Findings: see [id number] Pre Op Diagnosis: gerd and change in bowel habits Post-Op Diagnosis: Same Anesthesia Technique: Moderate Sedation Primary Surgeon: Jesse Stern Pathology: egd bx Complications: None Condition: Good
--- NOTE | 2019-03-07 14:27 | OR ---
SURGEON: Jesse Stern MD DATE OF PROCEDURE: 03/07/2019 PREOPERATIVE DIAGNOSES: Gastroesophageal reflux disease and change in bowel habits. POSTOPERATIVE DIAGNOSIS: Gastroesophageal reflux disease and change in bowel habits. PROCEDURES PERFORMED: Esophagogastroduodenoscopy with biopsy and colonoscopy. DESCRIPTION OF PROCEDURE: EGD: The patient was taken to the endoscopy room, and with the PIE MAKER MACHINE, Diprivan was administered. A well-lubricated EGD scope was gently inserted through the oropharynx, down the esophagus, passing through the gastroesophageal junction, into the stomach. The mucosa was examined upon the passage. Any etiology will be noted. Once in the stomach, we continued to advance to the distal antrum, passed through the pylorus into the second portion of the duodenum. Again, the mucosa was examined for any abnormality and etiology. The scope was then retrieved back to the stomach and then retroflexed to look at the fundus of the stomach. If a biopsy was indicated, we will biopsy the antrum, body, and gastroesophageal junction. The air will be sucked out while the scope is retrieved to reduce the patient's discomfort. The patient tolerated the procedure well. There were no intraoperative complications. Dr. Stern was present through the whole procedure. Prior to surgery, a time-out had been called, the patient identified, procedure identified and antibiotic administered. The patient was taken to the endoscopy room. A time out was called, patient identified, and procedure identified. Diprivan was then administrated. Patient went from awake to sleep, hearing doctor talking or door closing is normal. Perineum inspection and digital examination were then performed. A well- lubricated colonoscope was gently inserted through the rectum, advanced past the rectosigmoid junction, the descending colon, splenic flexure, transverse colon, hepatic flexure, ascending colon, arrived to the cecum. Cecum was identified as dictated in the finding. Then the scope was carefully withdrawn while attention was paid to the mucosal surface for any abnormality. Air will be sucked out during the scope withdrawal. At the rectum, retroflexed to examine any rectal diseases, fistula or hemorrhoids. Patient tolerated procedure well. There were no intraoperative complications, and Dr. Stern was present throughout the whole procedure. FINDINGS: EGD findings: 1. The patient is easily sedated with PIE MAKER MACHINE and Diprivan, the patient is soundly snoring. 2. Oropharynx and proximal esophagus are free of disease, stricture, inflammation, AV malformation. Distal esophagus at GE junction at 40 shows moderate amount of salmon-colored change with flame-like situation like Lu esophagitis, consistent with significant acid reflux. Rugae are normal in appearance. Antrum is a little bit inflamed. Duodenum is grossly normal. Retroflexed look at the fundus of stomach, there is a small hiatal hernia. Biopsy done at antrum, body, GE junction at 40 and sucked out the gas while scope pulling out. During the whole study, there is no vinny ulcer, blood, bile, or food particle observed. Colonoscopy findings: 1. The patient is easily sedated with PIE MAKER MACHINE and Diprivan, the patient is soundly snoring. 2. Bowel prep is left to be desirable, marginally acceptable. Some semi- formed stool and large amount of opaque yellow stool coating the mucosa, requiring a lot of irrigation. Colon rather straightforward. Cecum indicated by ileocecal fold, one-to-one indentation, appendiceal orifice. Light emittance is not observed. Mucosa examined upon scope pulling out requiring a large amount of irrigation and sometimes encountered some stool ball. The patient has a significant diverticulosis. No signs or symptoms of diverticulitis on the left colon. No polyp, mass, growth, inflammation, stricture, AV malformation. The patient has mild internal hemorrhoids, mild external hemorrhoids. The patient would benefit from repeat colonoscopy 10 years from today or if clinically indicated otherwise. AUGUSTO / LILA /[id number]
--- NOTE | 2019-03-07 14:36 | PCM.POSTAN ---
POST ANESTHESIA ASSESSMENT - MENTAL STATUS Mental Status: Alert, Oriented - VITAL SIGNS Vital Signs: Last Vital Signs Temp 36.9 C 03/07/19 10:34 Pulse 73 03/07/19 14:30 Resp 18 03/07/19 14:30 BP 129/72 03/07/19 14:30 Pulse Ox 97 03/07/19 14:30 - RESPIRATORY Respiratory Status: Respiratory Rate WNL, Airway Patent, O2 Saturation Stable - CARDIOVASCULAR CV Status: Pulse Rate WNL, Blood Pressure Stable - GASTROINTESTINAL GI Status: No Symptoms - PAIN Pain Score: 0 - POST OP HYDRATION Hydration Status: Adequate & Stable - OBSERVATIONS Free Text/Narrative:: no anesthesia problems
--- NOTE | 2019-03-07 15:03 | PCM48HPAN ---
Post Anesthesia Note - EVALUATION WITHIN 48HRS OF ANESTHETIC Vital Signs in Normal Range: Yes Patient Participated in Evaluation: Yes Respiratory Function Stable: Yes Airway Patent: Yes Cardiovascular Function Stable: Yes Hydration Status Stable: Yes Pain Control Satisfactory: Yes Nausea and Vomiting Control Satisfactory: Yes Mental Status Recovered: Yes Vital Signs: Last Vital Signs Temp 36.9 C 03/07/19 10:34 Pulse 72 03/07/19 14:35 Resp 17 03/07/19 14:35 BP 131/87 03/07/19 14:35 Pulse Ox 93 L 03/07/19 14:35 - COMMENTS/OBSERVATIONS Free Text/Narrative:: no anesthesia problems
[2019-03-07 15:04] VITALS: BP 123/81; PULSE 73
== END 2019-03-07 15:02 | disposition home or self-care (01) ==
LOC: MW.SDS 09:54
PROVIDERS: ATTEND Surgery
DX: K21.0 Gastro-esophageal reflux disease with esophagitis (principal); R19.4 Change in bowel habit; K44.9 Diaphragmatic hernia without obstruction or gangrene; K57.30 Diverticulosis of large intestine without perforation or abscess without bleeding; K64.8 Other hemorrhoids; K64.4 Residual hemorrhoidal skin tags; E11.65 Type 2 diabetes mellitus with hyperglycemia; E78.5 Hyperlipidemia, unspecified; E03.9 Hypothyroidism, unspecified; M19.032 Primary osteoarthritis, left wrist; G43.909 Migraine, unspecified, not intractable, without status migrainosus; M10.9 Gout, unspecified; F17.210 Nicotine dependence, cigarettes, uncomplicated; E66.9 Obesity, unspecified; Z79.84 Long term (current) use of oral hypoglycemic drugs; Z68.34 Body mass index [BMI] 34.0-34.9, adult
CPT/HCPCS: 43239; 45378; 82962; J2001; J2704; J7120; 00813; 88305; 88312